=== PATIENT | male | born 1945 | race Caucasian/White ===

== ENCOUNTER 2021-01-31 11:15 | Outpatient (RCR) | payer MEDICARE, SELFPAY ==
[2021-01-31] MEDS: COVID-19 VACC, MRNA(PFIZER)/PF 30 MCG/0.3 ML SYRINGE IM (11:31)
[2021-02-21] MEDS: COVID-19 VACC, MRNA(PFIZER)/PF 30 MCG/0.3 ML SYRINGE IM (11:23)
== END 2021-05-02 23:59 ==
LOC: IMMUN 11:15
PROVIDERS: PCP Family Medicine; Visit Provider Family Medicine
DX: Z23 Encounter for immunization (principal)
CPT/HCPCS: 0001A; 0002A; 91300

== ENCOUNTER 2025-07-22 17:04 | Emergency (ER) | payer MEDICARE, SELFPAY ==
[2025-07-22] VITALS (7 sets, daily range): BP systolic 121–146; BP diastolic 65–94; PULSE 77–90; RESP 12–17; TEMP 36.6; O2SAT 97–100; BMI 22.9
--- NOTE | 2025-07-22 17:56 | CT_ITS ---
PROCEDURE: CT BRAIN/HEAD WITHOUT CONTRAST 07/22/2025 REASON FOR EXAM: CONFUSION, RIGHT SIDED WEAKNESS Known history of metastatic prostate cancer with brain metastases with radiation treatment. TECHNIQUE: CT BRAIN/HEAD WITHOUT CONTRAST Coronal and Sagittal reconstruction series were provided. One or more dose reduction techniques were used (e.g., Automated exposure control, adjustment of the mA and/or kV according to patient size, use of iterative reconstruction technique. RADIATION DOSE SUMMARY: CTDlvol: 44.99 mGy DLP: 829.85 mGycm COMPARISON: None available. FINDINGS: There is acute intraparenchymal hemorrhage within the left parietal lobe, measuring up to 4.9 x 4.6 x 3.9 cm (AP, CC, TV). Surrounding parenchymal predominantly vasogenic edema. Associated mild mass-effect with partial effacement of the left lateral ventricle occipital and temporal horns. No midline shift or developing hydrocephalus/ventricular entrapment. No extra-axial collection or evidence for intraventricular extension. Patent basilar cisterns. Mild chronic microangiopathic changes elsewhere, with probable small foci of chronic lacunar infarcts in the left subinsular region and involving the head of the left caudate nucleus. Atherosclerotic vascular calcifications. Intact skull base and calvarium. Well-aerated paranasal sinuses and bilateral mastoid air cells. Absent [place] ocular lenses. CT/Brain/Head without Contrast IMPRESSION: Acute intraparenchymal hemorrhage within the left parietal lobe, as described. Likely underlying known brain mass/metastasis, complicated by superimposed hemorrhage. Correlation with any available outside imaging would be helpful. Surrounding vasogenic edema and mild mass-effect. Findings communicated with provider Zandra West 07/22/2025 at 6:05 p.m. BILINGUAL SPEECH LANGUAGE PATHOLOGIST. Reading Location: [facility]
--- NOTE | 2025-07-22 17:57 | EKG12_ITS ---
Test Reason : DYSRHYTHMIA Blood Pressure : */* mmHG Vent. Rate : 85 BPM Atrial Rate : * BPM P-R Int : * ms QRS Dur : 130 ms QT Int : 358 ms P-R-T Axes : * -54 86 degrees QTcB Int : 426 ms Wide QRS rhythm Left axis deviation Non-specific intra-ventricular conduction block Minimal voltage criteria for LVH, may be normal variant ( Sandor product ) Abnormal ECG Confirmed by MICHELLE CARSON ([id number]), photo editor PETE GORDON ([id number]) on 07/27/2025 6:27:47 AM Referred By: Confirmed By: MICHELLE CARSON
[2025-07-22 18:35] LABS: Hematocrit 32.5 % (40-54); Hemoglobin 11.5 g/dL (13.0-16.5); Immature Granulocytes Count 0.010 X10^3/uL (0.0-0.0); Mean Corp Hgb Conc 35.4 g/dL (32-36); Mean Corpuscular Volume 104.8 fL (80-94); Mean Platelet Vol. 9.9 fl (6.2-12.0); NRBC Flagged by Analyzer 0 % (0-5); Platelet Count 156 K/mm3 (150-450); RBC Distribution Width CV 12.6 % (11.6-14.6); RBC Distribution Width SD 47.3 fl (35.1-43.9); Red Blood Count 3.10 M/mm3 (4.6-6.2); White Blood Count 7.1 K/mm3 (4.4-11.0)
[2025-07-22 18:46] LABS: Alcohol, Blood (Medical)-Serum < 10.1 mg/dL (<=10.0)
[2025-07-22 18:47] LABS: AST(SGOT) 28 U/L (<=37); Alanine Aminotransfer ALT/SGPT 20 U/L (<=46); Albumin, Serum 4.0 g/dL (3.4-4.8); Alkaline Phosphatase 76 U/L (40-129); Anion Gap 9 (5-15); BUN 25 mg/dL (4-19); BUN/Creat Ratio 18.7 RATIO (10-20); Calcium,Total 9.2 mg/dL (7.6-11.0); Carbon Dioxide 24.0 mmol/L (21.0-32.0); Chloride 110 mmol/L (98-108); Estimated Creatinine Clearance 51.79 ml/min (50-250); Globulin 2.7 g/dL (2.2-4.2); Glucose 132 mg/dL (70-99); Potassium 4.0 mmol/L (3.3-5.1)
--- NOTE | 2025-07-22 18:48 | RAD_ITS ---
PROCEDURE: CHEST 1 VIEW (PORTABLE) 07/22/2025 REASON FOR EXAM: AMS TECHNIQUE: Frontal view of the chest. COMPARISON: None. FINDINGS: Lungs/Pleura: Clear. No focal consolidation, pneumothorax or sizable pleural effusion. Heart/Mediastinum: Top-normal in size. Mildly tortuous thoracic aorta. Bones/Soft tissues: Degenerative changes of the spine. IVC filter in the upper abdomen. RAD/Chest 1 View (Portable) IMPRESSION: No acute cardiopulmonary disease. Reading Location: [id number]
[2025-07-22 18:49] LABS: Prothrombin Time (Protime)PT. 13.4 SECONDS (11.7-14.9)
[2025-07-22 18:50] LABS: Partial Thromboplast Time 24.6 Seconds (24.1-36.2)
--- NOTE | 2025-07-22 19:49 | EX.ED.DYSGE1 ---
HPI History of Present Illness Chief Complaint: Mental Status Change Informant: spouse/S.O. and EMS Limited: other (Confused) Narrative Narrative: Patient is a 79-year-old male with history of metastatic prostate cancer as well as brain tumors that recently underwent brain radiation presenting for increased confusion as well as right-sided weakness and now falls. Patient arrived to the ER, is pleasantly confused and does not know why he is in the emergency room. He tells me he lives with his son Gurpreet. He cannot give me any medical history. He has no physical complaints at this time. I spoke to his significant other, Flower on the phone who states she is the one that called 911 and she lives with him and not his son. She states that for the last week has had worsening right-sided weakness is now having increased falls. He is increased confusion and became physically aggressive with her today. She also notes today he is complained of nausea and seems hot to the touch. His oncologist is Dr. Anand. He has had ongoing issues with intermittent confusion and paranoia for months. This is what prompted the testing to find the brain masses. She notes that he cannot have steroids because they make him incredibly agitated and aggressive. [facility] Medical History Prostate cancer Brain tumor Home Medications ?Medication ?Instructions ?Recorded ?Last Taken ?Type memantine 7 mg capsule See Rx Instructions PO .COMPLEX 07/22/25 Unknown History sprinkle,extended release 24hr Allergy/AdvReac Type Severity Reaction Status Date / Time morphine Allergy Unknown NEEDS Verified 07/22/25 17:08 FOLLOW-UP Corticosteroids AdvReac Intermediate Other Verified 07/22/25 17:08 (Glucocorticoids) (steroids) Social History Smoking Status: Former smoker ROS ROS ED ROS Narrative Review of systems obtained by the patient's significant other, limited as patient is unable to answer questions appropriately. Review of Systems ROS Unobtainable: due to encephalopathy Constitutional Constitutional ED: Reports fever(s) and sweats; Denies chills Gastrointestinal Gastrointestinal: Reports nausea Neurologic Neurologic: Reports weakness EXAM Physical Exam Const Vital Signs: 07/22/25 17:05 07/22/25 19:05 07/22/25 19:45 Temperature 98 F Temperature Source Oral Pulse Rate 90 82 82 Respiratory Rate 14 15 16 Blood Pressure 132/65 H 121/84 H 126/83 H Blood Pressure Mean 87 96 97 Pulse Ox 100 98 100 Oxygen Delivery Method Room Air Room Air Room Air 07/22/25 21:00 Temperature Temperature Source Pulse Rate 80 Respiratory Rate 14 Blood Pressure 131/84 H Blood Pressure Mean 99 Pulse Ox 98 Oxygen Delivery Method Room Air Positive well nourished and well developed General Appearance ED: well developed and NAD HEENT Reports TM's clear and moist mucous membranes Negative for trauma Tympanic Membrane ED: Yes TM's clear Eyes PERRL and EOMs intact bilaterally Eyes Narrative: No visual field cut appreciated Neck supple Chest Wall inspection of chest normal and palpation of chest normal Resp normal respiratory effort and clear to auscultation bilaterally Cardio regular rate, regular rhythm and no murmurs GI normal to inspection, nondistended, normoactive bowel sounds and non-tender Extremity normal to inspection General Extremety ED: Negative for edema or tenderness General Extremity: Negative for edema Neuro CN's II-XII intact bilaterally Neuro Narrative: weakness of the right upper extremity, arm drifts to the bed but does not hit the bed. No effort against gravity of the right lower extremity. Decreased sensation to the right upper and lower extremities. Neglect to the right side with sensation Sensorium / Orientation: alert and orientation impaired Sensory Exam: sensory level loss detected Psych mental status grossly normal Skin no rashes or lesions noted and no wounds MDM MDM MDM Narrative Medical decision making narrative: Patient evaluated for increased agitation as well as worsening right-sided weakness. On arrival patient is pleasant but does appear encephalopathic. He is protecting his airway. His GCS is 15. Considered stroke however given known brain mass with radiation suspect his symptoms might be related to this. Differential also includes metabolic or toxic encephalopathy as well as intracranial hemorrhage or hemorrhagic conversion of his mass. Lab work shows a mild elevation of creatinine 1.35 but do not have a baseline to compare to. Otherwise largely normal. CT of the head shows acute intraparenchymal hemorrhage with the left parietal lobe with likely underlying known brain mass/metastasis complicated by superimposed hemorrhage. No left shift initiated. There is associated vasogenic edema. Case is discussed with the [facility] transfer line as I do not have his prior imaging and he is established with the [facility]. In addition we do not have neurosurgery here. I spoke with Dr. Breen neurosurgery. Unfortunate was not able to see the imaging but I did go over that. He suspects this is likely associated the radiation but given the patient's neurologic deficits does except. No further recommendations. Recommend blood pressure management between 120 and 160 systolic. As he seems to be stable right now with no indication for steroids. On repeat evaluation patient is resting comfortably. He started to have some more movement to his right arm. He still pleasant but quite confused about the situation however. Lab Data Attestation: I reviewed the patient's lab results. Labs: Laboratory Results - last 24 hr 07/22/25 07/22/25 17:15 19:19 WBC 7.1 RBC 3.10 L Hgb 11.5 L Hct 32.5 L MCV 104.8 H MCH 37.1 H MCHC 35.4 RDW Std Deviation 47.3 H RDW Coeff of [place] 12.6 Plt Count 156 MPV 9.9 Immature Gran % (Auto) 0.100 Neut % (Auto) 80.3 H Lymph % (Auto) 10.9 L [place] % (Auto) 8.5 Eos % (Auto) 0.1 Baso % (Auto) 0.1 Absolute Neuts (auto) 5.7 Absolute Lymphs (auto) 0.78 L Nucleated RBC % 0 PT 13.4 INR 1.0 APTT 24.6 Sodium 143 Potassium 4.0 Chloride 110 H Carbon Dioxide 24.0 Anion Gap 9 BUN 25 H Creatinine 1.35 H Estim Creat Clear Calc 51.79 Est GFR (MDRD) Non-Af 54 L BUN/Creatinine Ratio 18.7 Glucose 132 H Calcium 9.2 Total Bilirubin 0.53 AST 28 ALT 20 Alkaline Phosphatase 76 Total Protein 6.7 Albumin 4.0 Globulin 2.7 Albumin/Globulin Ratio 1.5 Urine Color Yellow Urine Clarity Sl. Cloudy Urine pH 6.0 Ur Specific [place] 1.015 Urine Protein 100 H Urine Glucose (UA) Normal Urine Ketones 5 H Urine Occult Blood 250 H Urine Nitrite Negative Urine Bilirubin Negative Urine Urobilinogen Normal Ur Leukocyte Esterase 100 H Urine RBC 25-50 SEEN Urine WBC 25-50 SEEN Ur Squamous Epith Cells 0-5 SEEN Ur Transition Epith Cell 0-5 SEEN Urine Bacteria 1+ Urine Mucus 0 SEEN Urine Opiates Screen NEGATIVE U Buprenorphine Qual NEGATIVE Ur Oxycodone Screen NEGATIVE Urine Methadone Screen NEGATIVE Urine Fentanyl Screen NEGATIVE Ur Barbiturates Screen NEGATIVE Ur Phencyclidine Scrn NEGATIVE Ur Amphetamines Screen NEGATIVE U Benzodiazepines Scrn NEGATIVE Urine Cocaine Screen NEGATIVE U Cannabinoids Screen NEGATIVE Ethyl Alcohol < 10.1 Radiography Diagnostic Testing: Clinical Impression(s) from Imaging Studies Brain CT 07/22/25 17:56 IMPRESSION: Acute intraparenchymal hemorrhage within the left parietal lobe, as described. Likely underlying known brain mass/metastasis, complicated by superimposed hemorrhage. Correlation with any available outside imaging would be helpful. Surrounding vasogenic edema and mild mass-effect. Findings communicated with provider Zandra West 07/22/2025 at 6:05 p.m. CLOUD INFRASTRUCTURE ARCHITECT. Reading Location: [facility] Chest X-Ray 07/22/25 18:48 IMPRESSION: No acute cardiopulmonary disease. Reading Location: [facility] Rhythm Strip Rhythm Strip: Sinus Rhythm Rate: 85 Ectopy: None EKG Initial EKG: Attestation: I personally reviewed and interpreted this EKG as follows: Interpretation: Sinus Rhythm Comments: Normal sinus rhythm rate of 85 bpm Left axis deviation Interventricular conduction delay present Minimal voltage criteria for LVH No prior EKG available for comparison Management Discussion w/another healthcare provider: Linen Attendant (Neurosurgically the clinic) and Radiologist Critical Care Time Critical Care Time: Yes Critical care time (excluding procedures): 30-74 minutes (40), Discussing w/Patient &/or Family/Seafood Process Worker, Discussing w/Consultants, Arranging Admission or Transfer and - (Close neurologic and cardiopulmonary monitoring for intracranial hemorrhage) Discharge Plan Triage Chief Complaint: Mental Status Change Other Complaint: Neuro S/Sx ED Provider: Zandra West Dx/Rx/DC Orders Clinical Impression: Intracranial hemorrhage, Acute right-sided weakness, Foreign-neglect of right side, Encephalopathy, Elevated serum creatinine Prescriptions: No Action memantine 7 mg capsule,sprinkle,ER 24hr See Rx Instructions PO .COMPLEX Rx Instructions: Take 1 capsule by mouth once daily for 7 days, THEN 2 capsules once daily for 7 days, THEN 3 capsules once daily for 7 days. orally Take 1 capsule by mouth once daily for 7 days, THEN 2 capsules once daily for 7 days, THEN 3 capsules once daily for 7 days.; Primary Care Provider: Bryon Rubio Referrals: Bryon Rubio MD [Primary Care Provider] - Print Language: Ugandan Disposition Disposition: Acute Care Hospital Discharge Location: [facility] NIHSS NIHSS 1a. Level of Consciousness: 0 - Alert; keenly responsive 1b. LOC Questions: 1 - Answers ONE question correctly 1c. LOC Commands: 1 - Performs ONE task correctly 2. Best Gaze: 0 - Normal 3. Visual: 0 - No visual loss 4. Facial Palsy: 0 - Normal symmetrical movements 5a. Left Arm: 0 - No drift; arm holds 90 (or 45) degrees for full 10 seconds 5b. Right Arm: 1 - Drift; arm drifts downward but doesn?t hit the bed 6a. Left Le - No drift; leg holds 30-degree position for full 5 seconds 6b. Right Le - No effort against gravity; leg falls to bed immediately 7. Limb Ataxia: 0 - Absent 8. Sensory: 2 - Severe to total sensory loss; 9. Best Language: 1 - [id number] aphasia; 10. Dysarthria: 0 - Normal 11. Extinction and Inattention: 1 - Visual, tactile, auditory, spatial, or personal inattention; Total: 10 Stroke Questions Stroke Team Activated: No (Symptoms been going on for 2 days, known brain mass)
[2025-07-22 19:50] LABS: Mucous, Urine 0 SEEN /hpf (<or=2+)
[2025-07-22 20:00] LABS: Color, Urine Yellow (Yellow); Glucose, Dipstick Normal (Normal); Ketone-Dipstick 5 mg/dl (Negative); Leukocyte Esterase-Dipstick 100 /ul (Negative); Nitrite-Dipstick Negative (Negative); Occult Blood-Urine 250 /ul (Negative); Protein-Dipstick 100 mg/dl (Negative); Specific Gravity, Urine 1.015 (1.002-1.030); Urine Bilirubin Dipstick Negative (Negative)
[2025-07-22 20:16] LABS: Red Blood Cells-Urine 25-50 SEEN /hpf (0-5)
[2025-07-22 20:18] LABS: Squamous Epithelial Cells - UA 0-5 SEEN /hpf (0-5); Transitional Epithelial - Ur 0-5 SEEN /hpf (0-5)
[2025-07-22 20:23] LABS: Barbiturate Urine NEGATIVE (< 200 ng/mL); Benzodiazepine Urine NEGATIVE (< 200 ng/mL); PCP Urine NEGATIVE (< 25 ng/mL); THC Urine NEGATIVE (< 50 ng/mL)
--- NOTE | 2025-07-22 20:59 | PCA ---
Addendum entered by Bindu Heath 07/22/25 21:03: physicians eta 3 hrs-0000 did ask for possible outsource, waiting call back. Original Note: PT ACCEPTED AT [facility] MAIN [phone] LOCAL GROUND TRANSPORT SET UP. ALS BUT NOT PRIORITY PER .
--- NOTE | 2025-07-22 21:30 | ED.RN ---
1ST ATTEMPT MADE TO CALL REPORT TO [facility]. RESPONSE THE NURSE IS IN A ROOM RIGHT NOW. WE WILL CALL BACK
--- NOTE | 2025-07-22 22:04 | ED.RN ---
REPORT CALLED TO [facility] NURSEMEME AT THIS TIME. NO FURTHER QUESTIONS BY THE RECEIVING NURSE.
--- NOTE | 2025-07-22 22:28 | ED.RN ---
[facility] CALLED FOR PT. UPDATE. INSTRUCTED OF TRANSFER ETA OF MIDNIGHT AND VERBAL CONSENT FOR TRANSFER OBTAINED W/ Mari VYAS RN.
--- NOTE | 2025-07-22 23:50 | ED.RN ---
TRANSPORT TEAM AT PT. BEDSIDE. REPORT PROVIDED TO PHYSICIAN'S TRANSPORT TEAM AT THIS TIME.
== END 2025-07-23 00:10 | disposition short-term general hospital (02) ==
PROVIDERS: Emergency Provider Emergency Medicine; PCP Family Medicine; Visit Provider Emergency Medicine
DX: S06.30AA Unspecified focal traumatic brain injury with loss of consciousness status unknown, initial encounter (principal); R79.89 Other specified abnormal findings of blood chemistry; R53.1 Weakness; G93.40 Encephalopathy, unspecified; Z87.891 Personal history of nicotine dependence; W19.XXXA Unspecified fall, initial encounter
CPT/HCPCS: 70450; 71045; 80053; 80307; 81001; 82077; 85025; 85610; 85730; 93005; 99285; A4216